=== PATIENT | female | born 1990 | race Caucasian/White ===

== ENCOUNTER → 2018-01-27 | Outpatient (CLI) | payer OTHER | LOC: COL.RAD 12:24 | DX: M25.562 Pain in left knee (principal); G89.29 Other chronic pain ==

== ENCOUNTER → 2018-02-04 | Outpatient (CLI) | payer OTHER | LOC: COL.RAD 15:00 | DX: M21.962 Unspecified acquired deformity of left lower leg (principal) ==

== ENCOUNTER 2019-04-03 22:22 | Emergency (ER) | payer MEDICAID ==
[~2019-04-03] VITALS: Ht 167 cm; Wt 60.0 kg
[2019-04-03 22:30] VITALS: TEMP 97.8
[2019-04-04 00:03] LABS: BASO # 0.1 (0.0-0.2); BASO % 0.7 % (0.0-2.0); EOS # 0.2 (0.0-0.7); GRAN # 6.3 (1.4-6.5); HEMOGLOBIN 12.5 g/dl (12.5-16.0); LYMPH # 2.1 (1.2-3.4); LYMPH % 22.5 % (20.0-51.0); MEAN CELL VOLUME 90 fl (80.0-100.0); MEAN CORPUSCULAR HEMOGLOBIN 31 pg (27.0-31.0); MEAN CORPUSCULAR HGB CONC 35 g/dl (33.0-37.0); MEAN PLATELET VOLUME 10.2 fl (7.4-10.4); MONO # 0.6 (0.1-0.6); MONO % 6.5 % (1.7-9.3); PLATELET COUNT 213 K/mm3 (130-400); RED BLOOD COUNT 3.99 M/mm3 (4.10-5.30); REDCELL DISTRIBUTION WIDTH-CV 11.9 % (11.5-14.5)
[2019-04-04 00:16] LABS: HEMATOCRIT 35.8 % (37.0-47.0)
[2019-04-04 00:25] LABS: BILIRUBIN,TOTAL 0.6 mg/dL (0.0-1.0); C-REACTIVE PROTEIN 0.6 mg/dL (0.0-0.9); CALCIUM 9.4 mg/dL (8.4-10.2); CREATININE, serum 0.44 (0.52-1.25); POTASSIUM 3.7 mmol/L (3.4-5.0)
[2019-04-04 00:53] LABS: COLLECTION METHOD CLEAN CATCH
[2019-04-04 00:59] LABS: PH 7 (5-8); SQUAMOUS EPITHELIAL 0-2 /hpf; URINE APPEARANCE Clear; URINE BACTERIA None Seen /hpf; URINE BILIRUBIN Negative (NEGATIVE); URINE BLOOD Negative (NEGATIVE); URINE COLOR Straw; URINE GLUCOSE Negative (NEGATIVE); URINE KETONE Negative (NEGATIVE); URINE LEUKOCYTE ESTERASE Negative (NEGATIVE); URINE NITRATE Negative (NEGATIVE); URINE PROTEIN(semi-quant) Negative (NEGATIVE); URINE RBC 0-2 /hpf; URINE UROBILINOGEN Negative (NEGATIVE)
[2019-04-04] MEDS ORDERED: PHENERGAN 25 TA25 MG PO (01:17)
[2019-04-04 01:50] VITALS: BP 108/65; PULSE 81
== END 2019-04-04 01:50 | disposition home or self-care (01) ==
LOC: COL.ER 22:22
PROVIDERS: Emergency Medicine
DX: O21.9 Vomiting of pregnancy, unspecified (principal); Z90.49 Acquired absence of other specified parts of digestive tract; Z98.890 Other specified postprocedural states; Z3A.09 9 weeks gestation of pregnancy
CPT/HCPCS: J2550; J7030

== ENCOUNTER 2019-11-08 09:03 | Inpatient (IN) | payer MEDICAID ==
[2019-11-08] VITALS (34 sets, daily range): BP systolic 103–168; BP diastolic 52–102; PULSE 63–134; TEMP 98–102.8
[~2019-11-08] VITALS: Ht 167.6 cm; Wt 81.8 kg
--- NOTE | 2019-11-08 08:30 | NUR ---
Pt here with c/o contractions every minutes since last evening that have gradually gotten stronger this AM. Pt to [facility], explained. SVE: /-3 bulgy bag of higgins. Lawler discharge noted. Assessment complete, vital signs stable. Pt with hx of c/section and pt states her plan is to . 40.4 weeks gestation. GBS + and allergy noted to Penicillin. 0850:Dr Brower called and notified and updated. Will continue to monitor for 2 hours and recheck cervix. Pt able to be up and ambulating at this time. Pt states baby is active, denies any leaking of fluid.
[~2019-11-08 09:03] MED LIST: PHENERGAN 25 TA25 MG PO
[2019-11-08] MEDS ORDERED: PRENATAL (09:34)
--- NOTE | 2019-11-08 10:50 | NUR ---
Dr Brower at bedside, SVE: 4-5/80/-2. Orders received to admit and may have epidural when desires. Physician reviews monitor strip. 1100:IV started to left hand, blood drawn and LR infusing without difficulty.
[2019-11-08 11:19] LABS: BASO # 0.1 (0.0-0.2); BASO % 0.4 % (0.0-2.0); EOS % 0.2 % (0-4.0); GRAN # 11.1 (1.4-6.5); HEMOGLOBIN 12.4 g/dl (12.5-16.0); LYMPH # 1.8 (1.2-3.4); LYMPH % 13.2 % (20.0-51.0); MEAN CELL VOLUME 87 fl (80.0-100.0); MEAN CORPUSCULAR HEMOGLOBIN 29 pg (27.0-31.0); MEAN CORPUSCULAR HGB CONC 33 g/dl (33.0-37.0); MONO # 0.8 (0.1-0.6); MONO % 5.8 % (1.7-9.3); PLATELET COUNT 219 K/mm3 (130-400); RED BLOOD COUNT 4.35 M/mm3 (4.10-5.30); REDCELL DISTRIBUTION WIDTH-CV 15.9 % (11.5-14.5)
--- NOTE | 2019-11-08 11:30 | NUR ---
Consents signed. Pt requesting epidural. Vancomysin started IVPB for GBS +. Erickson TIRE ROOM SUPERVISOR here and notified. 1140:Erickson LEVY here and pt sitting up on side of bed. Epidural placed, test dose given at 1146. Pt tolerated well. See anesthesia notes.
--- NOTE | 2019-11-08 12:45 | NUR ---
1215 FHT DECREASED TO 60'S. PATIENT REPOSITIONED FROM LEFT TO RIGHT. DR GORE AT BEDSIDE, SCALP ELECTRODE APPLIED BY DR GORE. FHT 150 AND BABY VERY ACTIVE.
--- NOTE | 2019-11-08 18:07 | NUR ---
1715 MOM FEELS WARM FROM FOR PUSHING. 99.8 ORAL. CONTINUES TO PUSH WITH CONTRACTIONS. DR GORE AND THIS NURSE REMAINS AT BEDSIDE. 1724 HEAD DELIVERED AT THIS TIME. 39 SEC SHOULDER DYSTOCIA. MANUEVERS USED. PLEASE SEE DR. GORE NOTES. 1724 BABY BORN CORD CLAMPED AND CUT BY DR. GORE AND BABY TO [facility] WARMER FOR EVALUATION. 1725 REPAIR DONE AT THIS TIME. PATIENT TOLERATES WELL. 1730 PLACENTA DELIVERED. AND PITOCIN STARTED PER PROTOCOL. FUNDUS FIRM AND MODERATE BLEEDING NOTED.
--- NOTE | 2019-11-08 21:45 | NUR ---
2144- EPIDURAL CATHETER REMOVED WITH BLUE TIP INTACT. PT ASSISTED TO AMBULATE TO BATHROOM. PT ABLE TO VOID 800ML WITHOUT DIFFICULTY. PT ASSISTED WITH PERICARE. NORMAL LOCHIA DISCUSSED. PT PROVIDED WITH CLEAN GOWN, PAD, AND PANTIES. 2199- PT AMBULATES TO ROOM 214 WITHOUT DIFFICULTY. BABY AND BELONGINGS WITH PT. PT ORIENTED TO ROOM AND CALL LIGHTS. PLAN OF CARE DISCUSSED AND QUESTIONS ANSWERED. PT DENIES FURTHER NEEDS.
[2019-11-09 00:50] VITALS: BP 104/51; PULSE 81; TEMP 98.5
[2019-11-09 07:30] VITALS: BP 109/65; PULSE 99; TEMP 98
[2019-11-09 15:55] VITALS: BP 109/62; PULSE 84; TEMP 98
[2019-11-09 21:00] VITALS: BP 104/56; PULSE 81; TEMP 98.7
[2019-11-10 08:10] VITALS: BP 108/60; PULSE 78; TEMP 98.6
[2019-11-10] MEDS ORDERED: IBU800 M1 PO (08:32)
== END 2019-11-10 13:30 | disposition home or self-care (01) | DRG 807 ==
LOC: LDRO 09:03 → OB 11:01 → LDR 11:01 → OB 22:00
PROVIDERS: ADMIT Student in an Organized Health Care Education/Training Program
PROC: 10E0XZZ Delivery of Products of Conception, External Approach (ICD-10-PCS; principal; 2019-11-08)
PROC: 0W8NXZZ Division of Female Perineum, External Approach (ICD-10-PCS; 2019-11-08)
PROC: 10J17ZZ Inspection of Products of Conception, Retained, Via Natural or Artificial Opening (ICD-10-PCS; 2019-11-08)
PROC: 0UQMXZZ Repair Vulva, External Approach (ICD-10-PCS; 2019-11-08)
DX: O48.0 Post-term pregnancy (principal); Z37.0 Single live birth; Z3A.40 40 weeks gestation of pregnancy; O34.211 Maternal care for low transverse scar from previous cesarean delivery; O99.824 Streptococcus B carrier state complicating childbirth; O26.893 Other specified pregnancy related conditions, third trimester; Z67.91 Unspecified blood type, Rh negative; Z88.0 Allergy status to penicillin; O66.0 Obstructed labor due to shoulder dystocia; O70.0 First degree perineal laceration during delivery
CPT/HCPCS: J2590; J2791; J3370; J7050; J7120

== ENCOUNTER → 2020-02-07 | Outpatient (CLI) | payer MEDICAID ==
[~2020-02-07] MED LIST changes: +IBU800 M1 PO; +PRENATAL
== END ==
LOC: COL.RAD 12:31
DX: R22.41 Localized swelling, mass and lump, right lower limb (principal); M79.89 Other specified soft tissue disorders